=== PATIENT | male | born 1970 | race African-American/Black ===

== ENCOUNTER 2018-01-01 15:38 | Emergency (ER) | payer MEDICAID ==
[~2018-01-01] VITALS: Ht 180.3 cm; Wt 65.8 kg
[~2018-01-01 15:38] MED LIST: IBUPROFEN600 MG ORAL
[2018-01-01] MEDS ORDERED: Naproxen 500mg tab ORAL ONE (16:15)
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
[2018-01-01 17:23] VITALS: BP 155/88
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
[2018-01-01] MEDS ORDERED: NAPROXEN500 M2 ORAL (17:27)
[2018-01-01 17:36] VITALS: BP 155/88
== END 2018-01-01 17:36 | disposition home or self-care (01) ==
LOC: EMR 16:05
DX: S30.0XXA Contusion of lower back and pelvis, initial encounter (principal); M54.5 Low back pain; V19.09XA Pedal cycle driver injured in collision with other motor vehicles in nontraffic accident, initial encounter; Y92.410 Unspecified street and highway as the place of occurrence of the external cause; Y93.55 Activity, bike riding; Y99.9 Unspecified external cause status
CPT/HCPCS: 72020; 99283

== ENCOUNTER 2018-10-31 23:58 | Emergency (ER) | payer MEDICAID, OTHER ==
[~2018-10-31] VITALS: Ht 182.9 cm; Wt 72.6 kg
[~2018-10-31 23:58] MED LIST changes: +NAPROXEN500 M2 ORAL
[2018-11-01] MEDS ORDERED: NKM (00:02)
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
[2018-11-01 00:16] VITALS: BP 155/95
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
[2018-11-01 02:30] VITALS: BP 136/87
--- NOTE | 2018-11-01 03:34 | NUR ---
ED Nurse Note: Pt awakened easily; alert and oriented x4, and fully ambulatory.
[2018-11-01 03:45] VITALS: BP 136/87
--- NOTE | 2018-11-01 03:45 | NUR ---
ER DISCHARGE NOTE: Patient is cleared to be discharged per ERMD, pt is aox4, on room air, with stable vital signs. pt was given dc and prescription instructions, pt was able to verbalize understanding, pt id band and iv site removed without complications. pt is able to ambulate with steady gait. pt took all belongings. Pt taken by PD
== END 2018-11-01 03:45 ==
LOC: EDUNIT# 23:58 → EDBD 23:58 → EMR 11-01 00:15
DX: R45.1 Restlessness and agitation (principal)
CPT/HCPCS: 96360; 99284

== ENCOUNTER 2018-12-20 17:36 | Emergency (ER) | payer MEDICAID, OTHER ==
[~2018-12-20] VITALS: Ht 182.9 cm; Wt 72.6 kg
[~2018-12-20 17:36] MED LIST changes: +NKM
[2018-12-20 17:51] VITALS: BP 154/82
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
[2018-12-20] MEDS ORDERED: Isovue-300 100ml vial INJ PRN (18:00)
[2018-12-20 18:04] LABS: BASOPHILS % (AUTO) 2.8 % (0.0-2.0); HEMATOCRIT 36.4 % (42.0-52.0); HEMOGLOBIN 12.7 G/DL (14.2-18.0); MEAN CORPUSCULAR VOLUME 94 FL (80-99); NEUTROPHILS % (AUTO) 44.1 % (45.0-75.0); PLATELET COUNT 277 K/UL (150-450); RED BLOOD COUNT 3.88 M/UL (4.70-6.10); RED CELL DISTRIBUTION WIDTH 13.4 % (11.6-14.8); WHITE BLOOD COUNT 5.4 K/UL (4.8-10.8)
[2018-12-20 18:11] LABS: INR 0.9 (0.9-1.1)
[2018-12-20 18:18] LABS: ANION GAP 14 mmol/L (5-15); BLOOD UREA NITROGEN 12 mg/dL (7-18); CALCIUM 9.6 MG/DL (8.5-10.1); CARBON DIOXIDE 23 MMOL/L (21-32); CHLORIDE 108 MMOL/L (98-107); CREATININE 1.5 MG/DL (0.55-1.30); POTASSIUM 3.8 MMOL/L (3.5-5.1); SODIUM 145 MMOL/L (136-145)
[2018-12-20 18:30] LABS: ALANINE AMINOTRANSFERASE 21 U/L (12-78); ALBUMIN 4.3 G/DL (3.4-5.0); ALKALINE PHOSPHATASE 79 U/L (46-116); ASPARTATE AMINO TRANSFERASE 30 U/L (15-37); BILIRUBIN,TOTAL 0.4 MG/DL (0.2-1.0)
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
[2018-12-20 19:42] VITALS: BP 147/83
[2018-12-20] MEDS ORDERED: Lidocaine 1% 10mg/ml/Epi 0.005mg/ml 30ml vial INJ ONE (20:15)
[2018-12-20] MEDS ORDERED: CEPHALEXIN500 MG ORAL (21:02)
[2018-12-20 21:15] VITALS: BP 147/83
== END 2018-12-20 21:15 | disposition home or self-care (01) ==
LOC: EMR 17:55
DX: S31.119A Laceration without foreign body of abdominal wall, unspecified quadrant without penetration into peritoneal cavity, initial encounter (principal); F17.210 Nicotine dependence, cigarettes, uncomplicated; X99.0XXA Assault by sharp glass, initial encounter; Y92.9 Unspecified place or not applicable
CPT/HCPCS: 12035; 36415; 71260; 74177; 80053; 85025; 85610; 85730; 99284; Q9967; Z7502